=== PATIENT | female | born 1965 | race Two or more races ===

== ENCOUNTER 2017-01-11 19:09 | Emergency (ER) | payer OTHER ==
[2017-01-11 19:16] VITALS: BP 153/101; PULSE 85; BMI 36.8
[2017-01-11] MEDS ORDERED: KETOROLAC TROMETHAMINE 60 MG/2 ML VIAL IM ONE (19:49)
[2017-01-11] MEDS ORDERED: KETOROLAC TROMETHAMINE 60 MG/2 ML VIAL ONE (19:50)
[2017-01-11 20:02] VITALS: TEMP 98.9
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
== END 2017-01-11 20:28 | disposition home or self-care (01) ==
LOC: JERFT 19:09
PROC: 3E0233Z Introduction of Anti-inflammatory into Muscle, Percutaneous Approach (ICD-10-PCS; principal; 2017-01-11)
DX: M62.838 Other muscle spasm (principal); E11.9 Type 2 diabetes mellitus without complications; I10 Essential (primary) hypertension; Z79.84 Long term (current) use of oral hypoglycemic drugs
CPT/HCPCS: 99281-25